=== PATIENT | female | born 2005 | race Two or more races ===

== ENCOUNTER 2024-09-09 02:51 | Emergency (ER) | payer OTHER ==
[~2024-09-09] VITALS: Ht 165.1 cm; Wt 129.8 kg
[2024-09-09 03:28] LABS: BASO # 0.1 10^3/uL (0.0-0.2); BASO % 0.5 % (0.0-1.0); EOS # 0.1 10^3/uL (0.0-0.5); EOS % 1.2 % (0.0-3.0); HEMATOCRIT 42.7 % (36.0-47.0); HEMOGLOBIN 13.7 g/dl (12.0-15.5); LYMPH # 2.1 10^3/uL (1.5-5.0); LYMPH % 20.9 % (24.0-44.0); MEAN CORPUSCULAR HEMOGLOBIN 27.6 pg (27.0-33.0); MEAN CORPUSCULAR HGB CONC 32.1 g/dl (32.0-36.5); MEAN CORPUSCULAR VOLUME 85.9 fl (80.0-96.0); MONO # 0.7 10^3/uL (0.0-0.8); MONO % 7.1 % (2.0-8.0); PLATELET COUNT, AUTOMATED 425 10^3/uL (150-450); RED BLOOD COUNT 4.97 10^6/uL (4.00-5.40)
[2024-09-09 03:50] LABS: LIPASE 29 U/L (12-53)
[2024-09-09 03:52] LABS: ALKALINE PHOSPHATASE 99 U/L (35-104); ALT/SGPT 25 U/L (7.0-40); AST/SGOT 15 U/L (<34); BILIRUBIN,DIRECT < 0.1 MG/DL (<0.4); BILIRUBIN,TOTAL 0.2 MG/DL (0.3-1.2); BLOOD UREA NITROGEN 13 MG/DL (9-23); CALCIUM LEVEL 9.4 MG/DL (8.5-10.1); CARBON DIOXIDE LEVEL 26 MMOL/L (20-31); CHLORIDE LEVEL 106 MMOL/L (98-107); CREATININE FOR GFR 0.65 MG/DL (0.55-1.30); GLOMERULAR FILTRATION RATE > 90.0 (>60); GLUCOSE, FASTING 92 MG/DL (60-100); POTASSIUM SERUM 4.1 MMOL/L (3.5-5.1); SODIUM LEVEL 141 MMOL/L (136-145); TOTAL PROTEIN 8.2 G/DL (5.7-8.2)
[2024-09-09 04:04] LABS: HCG, SERUM QUALITATIVE NEGATIVE (NEGATIVE)
[2024-09-09 04:07] LABS: KETONE, URINE AUTO RFX NEGATIVE (NEGATIVE); LEUKOCYTE ESTERASE UR AUTO RFX NEGATIVE (NEGATIVE); NITRITE, URINE AUTO RFX NEGATIVE (NEGATIVE); RBC, URINE AUTO RFX 4 /HPF (0-3); SQUAM EPITHELIAL CELL UR AURFX 1 /HPF (0-6); WBC, URINE AUTO RFX 1 /HPF (0-3)
[2024-09-09] MEDS: ONDANSETRON 4MG ORAL DISINTEGRATING TAB PO ONE (07:06)
[2024-09-09 08:30] VITALS: BP 110/55; TEMP 97.5; O2SAT 99
[2024-09-09] MEDS ORDERED: ONDA-282 PO (08:31)
[2024-09-09] MEDS ORDERED: PANT40TA29 PO (08:31)
== END 2024-09-09 08:40 | disposition home or self-care (01) ==
LOC: M ED 02:51
DX: R10.9 Unspecified abdominal pain (principal); R11.2 Nausea with vomiting, unspecified; F17.200 Nicotine dependence, unspecified, uncomplicated; F10.10 Alcohol abuse, uncomplicated; Z79.83 Long term (current) use of bisphosphonates; Z79.899 Other long term (current) drug therapy

== ENCOUNTER 2025-03-20 21:36 | Emergency (ER) | payer OTHER ==
[~2025-03-20] VITALS: Ht 162.6 cm; Wt 131.8 kg
[~2025-03-20 21:36] MED LIST: ONDA-282 PO; PANT40TA29 PO
[2025-03-21 07:56] VITALS: BP 123/77; TEMP 97.2; O2SAT 99
[2025-03-21] MEDS ORDERED: METF-838 (07:58)
[2025-03-21] MEDS ORDERED: MULTTAB20 PO (07:58)
[2025-03-21] MEDS: SODIUM CHLORIDE NASAL 0.65% SPRAY BTL (OCEAN) STA (08:19)
[2025-03-21 08:30] LABS: BASO # 0.1 10^3/uL (0.0-0.2); BASO % 0.5 % (0.0-1.0); EOS # 0.2 10^3/uL (0.0-0.5); EOS % 2.0 % (0.0-3.0); LYMPH # 2.1 10^3/uL (1.5-5.0); LYMPH % 22.7 % (24.0-44.0); MONO # 0.8 10^3/uL (0.0-0.8); MONO % 9.1 % (2.0-8.0); NEUTROPHILS # 6.0 10^3/uL (1.5-8.5); NEUTROPHILS % 65.4 % (36.0-66.0); PLATELET COUNT, AUTOMATED 419 10^3/uL (150-450)
[2025-03-21 08:51] LABS: INR 0.99
== END 2025-03-21 09:11 | disposition home or self-care (01) ==
LOC: M ED 21:36
DX: R04.0 Epistaxis (principal); K21.9 Gastro-esophageal reflux disease without esophagitis; E28.2 Polycystic ovarian syndrome; F10.10 Alcohol abuse, uncomplicated; Z79.4 Long term (current) use of insulin; Z79.899 Other long term (current) drug therapy